=== PATIENT | female | born 1990 | race Caucasian/White ===

== ENCOUNTER 2023-09-19 02:45 | Inpatient (IN) | payer OTHER, SELFPAY ==
[2023-09-19 03:06] VITALS: BMI 25.1
[2023-09-19 03:08] VITALS: BP 129/68
[2023-09-19 03:59] LABS: % Basophils 0.3 % (0-2); % Eosinophils 0.5 % (0-6); % Immature Granulocytes 0.8 % (0-0.5); % Lymphocytes 17.2 % (20.5-51.1); % Monocytes 6.9 % (1.7-9.3); % Neutrophils 74.3 % (42.2-75.2); Absolute Eosinophils 0.1 10^3/uL (0-0.7); Absolute Immature Granulocytes 0.1 10^3/uL (0-0.05); Absolute Lymphocytes 1.6 10^3/uL (1.2-3.4); Absolute Monocytes 0.6 10^3/uL (0.1-0.6); Absolute Neutrophils 6.8 10^3/uL (1.4-6.5); Hematocrit 31.8 % (37.0-47.0); Hemoglobin 10.8 g/dL (12.0-16.0); Mean Corpuscular Hgb 28.3 pg (27.0-31.0); Mean Corpuscular Volume 83.5 fL (81.0-99.0); Mean Platelet Volume 12.3 fL (7.4-10.4); Nucleated Red Blood Cells % 0 %; Platelet Count 126 10^3/uL (130-400); Red Blood Cell Count 3.81 10^6/uL (4.20-5.40); Red Cell Dist. Width 13.6 % (11.5-14.5); White Blood Cell Count 9.2 10^3/uL (4.8-10.8)
[2023-09-19] MEDS: PENICILLIN 110 UNITS IV (04:06)
[2023-09-19] MEDS: LR 1000 IV (04:06)
== END 2023-09-19 08:26 | disposition home or self-care (01) | DRG 833 ==
LOC: LDRP 02:45
PROVIDERS: Obstetrics & Gynecology; ADMITTING PHYSICIAN Obstetrics & Gynecology; FAMILY PHYSICIAN Family Medicine
DX: O47.1 False labor at or after 37 completed weeks of gestation (principal); Z3A.39 39 weeks gestation of pregnancy; Z88.5 Allergy status to narcotic agent; O99.820 Streptococcus B carrier state complicating pregnancy
CPT/HCPCS: 85025; 86850; 86900; 86901; G0378

== ENCOUNTER 2023-09-22 03:55 | Inpatient (IN) | payer OTHER, SELFPAY ==
[2023-09-22 04:08] VITALS: BMI 25.3
[2023-09-22 04:14] VITALS: BP 108/67
[2023-09-22 04:44] LABS: % Basophils 0.4 % (0-2); % Eosinophils 0.9 % (0-6); % Immature Granulocytes 0.5 % (0-0.5); % Monocytes 5.6 % (1.7-9.3); % Neutrophils 74.6 % (42.2-75.2); Absolute Eosinophils 0.1 10^3/uL (0-0.7); Absolute Lymphocytes 1.5 10^3/uL (1.2-3.4); Absolute Monocytes 0.5 10^3/uL (0.1-0.6); Absolute Neutrophils 6.1 10^3/uL (1.4-6.5); Hematocrit 30.5 % (37.0-47.0); Hemoglobin 10.6 g/dL (12.0-16.0); Mean Corp Hgb Conc. 34.8 g/dL (33.0-37.0); Mean Corpuscular Hgb 28.6 pg (27.0-31.0); Mean Corpuscular Volume 82.2 fL (81.0-99.0); Mean Platelet Volume 12.1 fL (7.4-10.4); Nucleated Red Blood Cells % 0 %; Platelet Count 127 10^3/uL (130-400); Red Blood Cell Count 3.71 10^6/uL (4.20-5.40); Red Cell Dist. Width 13.5 % (11.5-14.5); White Blood Cell Count 8.2 10^3/uL (4.8-10.8)
[2023-09-22] MEDS: LR 1000 IV ×2 (04:45→05:45)
[2023-09-22] MEDS: PENICILLIN 110 UNITS IV (05:06)
[2023-09-22] MEDS: FENTANYL/BUPIVACAINE 100 EPIDURAL (05:22)
[2023-09-22] MEDS: SUBLIMAZE 100 MCG EPIDURAL (05:22)
[2023-09-22] MEDS: PENICILLIN 55 UNITS IV (08:46)
[2023-09-22] MEDS: MOTRIN 600 MG PO ×2 (16:34→22:34)
[2023-09-22] MEDS: TYLENOL 650 MG PO (22:34)
[2023-09-23 04:33] LABS: Hematocrit 30.5 % (37.0-47.0); Hemoglobin 10.1 g/dL (12.0-16.0)
[2023-09-23] MEDS: MOTRIN 600 MG PO ×3 (05:28→17:23)
[2023-09-23] MEDS: TYLENOL 650 MG PO ×3 (05:28→17:23)
[2023-09-23] MEDS: PRENATAL PLUS 1 TABLET PO (09:15)
[2023-09-23] MEDS: FEOSOL 325 MG PO ×2 (09:15→20:35)
[2023-09-23] MEDS: SENOKOT-S 1 TABLET PO (09:15)
[2023-09-24] MEDS: MOTRIN 600 MG PO ×2 (00:30→08:26)
[2023-09-24] MEDS: TYLENOL 650 MG PO ×2 (00:30→08:25)
[2023-09-24] MEDS: PRENATAL PLUS 1 TABLET PO (08:25)
[2023-09-24] MEDS: FEOSOL 325 MG PO (08:25)
[2023-09-24 14:39] LABS: Syphilis/T. pallidum Ab Reflex Negative (Negative)
== END 2023-09-24 12:49 | disposition home or self-care (01) | DRG 768 ==
LOC: LDRP 03:55
PROVIDERS: Obstetrics & Gynecology; ADMITTING PHYSICIAN Obstetrics & Gynecology
PROC: 10E0XZZ Delivery of Products of Conception, External Approach (ICD-10-PCS; 2023-09-22)
PROC: 0W8NXZZ Division of Female Perineum, External Approach (ICD-10-PCS; 2023-09-22)
PROC: 0DQP0ZZ Repair Rectum, Open Approach (ICD-10-PCS; 2023-09-22)
DX: O42.02 Full-term premature rupture of membranes, onset of labor within 24 hours of rupture (principal); Z37.0 Single live birth; O70.3 Fourth degree perineal laceration during delivery; Z3A.39 39 weeks gestation of pregnancy; Z88.5 Allergy status to narcotic agent; F90.9 Attention-deficit hyperactivity disorder, unspecified type; L40.9 Psoriasis, unspecified; O99.824 Streptococcus B carrier state complicating childbirth; O76 Abnormality in fetal heart rate and rhythm complicating labor and delivery; O90.81 Anemia of the puerperium; D64.9 Anemia, unspecified
CPT/HCPCS: 88307; 85014; 85018; 85025; 86780; 86850; 86900; 86901

== ENCOUNTER 2023-10-26 12:02 | Outpatient (RCR) | payer OTHER, SELFPAY | END 2023-10-26 23:59 | disposition home or self-care (01) | LOC: RPT 12:02 | PROVIDERS: ATTENDING PHYSICIAN Obstetrics & Gynecology; FAMILY PHYSICIAN Physician Assistant Medical | DX: N39.3 Stress incontinence (female) (male) (principal); R39.15 Urgency of urination; R15.2 Fecal urgency; M62.89 Other specified disorders of muscle; Z73.6 Limitation of activities due to disability; R10.2 Pelvic and perineal pain | CPT/HCPCS: 97110; 97112; 97162; 97530 ==

== ENCOUNTER 2023-12-08 13:03 | Outpatient (RCR) | payer OTHER, SELFPAY | END 2023-12-08 23:59 | disposition home or self-care (01) | LOC: RPT 13:03 | PROVIDERS: ATTENDING PHYSICIAN Obstetrics & Gynecology; FAMILY PHYSICIAN Physician Assistant Medical | DX: N39.3 Stress incontinence (female) (male) (principal); R39.15 Urgency of urination; R15.2 Fecal urgency; M62.89 Other specified disorders of muscle; Z73.6 Limitation of activities due to disability | CPT/HCPCS: 97014; 97110; 97112; 97140; 97530 ==

== ENCOUNTER 2024-01-06 12:10 | Outpatient (RCR) | payer OTHER, SELFPAY | END 2024-01-06 23:59 | disposition home or self-care (01) | LOC: RPT 12:10 | PROVIDERS: ATTENDING PHYSICIAN Obstetrics & Gynecology; FAMILY PHYSICIAN Physician Assistant Medical | DX: N39.3 Stress incontinence (female) (male) (principal); R39.15 Urgency of urination; R15.2 Fecal urgency; M62.89 Other specified disorders of muscle; Z73.6 Limitation of activities due to disability; R10.2 Pelvic and perineal pain | CPT/HCPCS: 97014; 97110; 97112; 97140; 97530 ==

== ENCOUNTER 2024-01-20 12:13 | Outpatient (RCR) | payer OTHER, SELFPAY | END 2024-01-20 23:59 | disposition home or self-care (01) | LOC: RPT 12:13 | PROVIDERS: ATTENDING PHYSICIAN Obstetrics & Gynecology; FAMILY PHYSICIAN Physician Assistant Medical | DX: N39.3 Stress incontinence (female) (male) (principal); R39.15 Urgency of urination; R15.2 Fecal urgency; M62.89 Other specified disorders of muscle; Z73.6 Limitation of activities due to disability; R10.2 Pelvic and perineal pain | CPT/HCPCS: 97110; 97140; 97530 ==

== ENCOUNTER 2024-02-17 14:15 | Outpatient (RCR) | payer OTHER, SELFPAY | END 2024-02-17 23:59 | disposition home or self-care (01) | LOC: RPT 14:15 | PROVIDERS: ATTENDING PHYSICIAN Obstetrics & Gynecology; FAMILY PHYSICIAN Physician Assistant Medical | DX: N39.3 Stress incontinence (female) (male) (principal); R39.15 Urgency of urination; R15.2 Fecal urgency; M62.89 Other specified disorders of muscle; Z73.6 Limitation of activities due to disability; R10.2 Pelvic and perineal pain | CPT/HCPCS: 97110; 97112 ==

== ENCOUNTER → 2024-03-07 13:29 | Day surgery (SDC) | payer OTHER, SELFPAY ==
[2024-03-07 13:35] VITALS: BMI 19.9
[2024-03-07 13:40] VITALS: BP 137/89
[2024-03-07 13:49] VITALS: BMI 19.9
[2024-03-07 16:03] VITALS: BP 109/82
[2024-03-07 16:15] VITALS: BP 122/81
[2024-03-07 16:30] VITALS: BP 123/80
== END ==
LOC: SDS 13:29
PROVIDERS: ATTENDING PHYSICIAN Surgery
DX: R15.2 Fecal urgency (principal)
CPT/HCPCS: 45378

== ENCOUNTER 2024-03-28 09:08 | Outpatient (RCR) | payer OTHER, SELFPAY | END 2024-03-28 23:59 | disposition home or self-care (01) | LOC: RPT 09:08 | PROVIDERS: ATTENDING PHYSICIAN Obstetrics & Gynecology; FAMILY PHYSICIAN Physician Assistant Medical | DX: N39.3 Stress incontinence (female) (male) (principal); R39.15 Urgency of urination; R15.2 Fecal urgency; M62.89 Other specified disorders of muscle; Z73.6 Limitation of activities due to disability; R10.2 Pelvic and perineal pain | CPT/HCPCS: 97140; 97530 ==

== ENCOUNTER 2024-04-19 18:13 | Outpatient (RCR) | payer OTHER, SELFPAY | END 2024-04-19 23:59 | disposition home or self-care (01) | LOC: RPT 18:13 | PROVIDERS: ATTENDING PHYSICIAN Obstetrics & Gynecology; FAMILY PHYSICIAN Physician Assistant Medical | DX: N39.3 Stress incontinence (female) (male) (principal); R39.15 Urgency of urination; R15.2 Fecal urgency; M62.89 Other specified disorders of muscle; Z73.6 Limitation of activities due to disability; R10.2 Pelvic and perineal pain | CPT/HCPCS: 97140; 97530 ==

== ENCOUNTER 2024-05-16 11:19 | Outpatient (RCR) | payer OTHER, SELFPAY | END 2024-05-16 23:59 | disposition home or self-care (01) | LOC: RPT 11:19 | PROVIDERS: ATTENDING PHYSICIAN Obstetrics & Gynecology; FAMILY PHYSICIAN Physician Assistant Medical | DX: N39.3 Stress incontinence (female) (male) (principal); R39.15 Urgency of urination; R15.2 Fecal urgency; M62.89 Other specified disorders of muscle; Z73.6 Limitation of activities due to disability; R10.2 Pelvic and perineal pain | CPT/HCPCS: 97140; 97530 ==

== ENCOUNTER 2024-07-03 05:57 | Day surgery (SDC) | payer OTHER, SELFPAY ==
[2024-06-21 11:38] LABS: Hemoglobin 13.9 g/dL (12.0-16.0); Mean Corp Hgb Conc. 33.9 g/dL (33.0-37.0); Mean Corpuscular Hgb 29.5 pg (27.0-31.0); Mean Platelet Volume 12.2 fL (7.4-10.4); Platelet Count 217 10^3/uL (130-400); Red Blood Cell Count 4.71 10^6/uL (4.20-5.40); Red Cell Dist. Width 12.4 % (11.5-14.5)
[2024-06-21 11:41] LABS: Blood Urea Nitrogen 18 mg/dl (7-17); Calcium 9.6 mg/dl (8.4-10.2); Carbon Dioxide 25 mmol/L (22-30); Chloride 104 mmol/L (98-107); Glucose 96 mg/dl (70-99); Potassium 4.1 mmol/L (3.5-5.1); Sodium 138 mmol/L (135-145); eGFR > 60.00
[2024-06-21 14:12] VITALS: BMI 18.0
[2024-07-03] VITALS (15 sets, daily range): BP systolic 90–118; BP diastolic 49–70; BMI 18.0
[2024-07-03] MEDS: NORMOSOL-R/PLASMALYTE-A 1000 IV ×3 (06:31→17:55)
[2024-07-03] MEDS: Pyridium 200 MG PO (06:31)
[2024-07-03] MEDS: ZOFRAN 4 MG IV (09:26)
[2024-07-03] MEDS: DILAUDID 0.5 MG IV ×2 (09:51→20:35)
[2024-07-03 10:07] LABS: Hematocrit 35.6 % (37.0-47.0); Hemoglobin 12.2 g/dL (12.0-16.0)
[2024-07-03] MEDS: DILAUDID 0.25 MG IV (10:52)
[2024-07-03] MEDS: ROXICODONE 5 MG PO ×2 (13:35→17:54)
--- NOTE | 2024-07-03 15:35 | PTCARENOTE ---
Pt received from PACU, pt assessed by myself and Lyndsay WILKES. Surgical site intact with no bleeding noted. Pt complains of severe pain, ice pack applied, given cushion to sit on and prn oxycodone was given. Pt currently in much better spirits,
tolerating a regular diet with no further nausea. [place] in place putting out bright orange urine (pyridium). at bedside, all questions answered. Call khanna within reach.
[2024-07-03] MEDS: COLACE 100 MG PO (20:15)
[2024-07-04 00:09] VITALS: BP 109/57
[2024-07-04] MEDS: NORMOSOL-R/PLASMALYTE-A 1000 IV (00:38)
[2024-07-04 03:11] VITALS: BP 98/57
[2024-07-04] MEDS: ROXICODONE 5 MG PO ×3 (03:18→11:34)
[2024-07-04 05:31] VITALS: BP 102/58
--- NOTE | 2024-07-04 07:06 | W.PN.GYN ---
Today's Communication / Plan
-
1. voiding trial
2. blood work pending
3. discharge home
Physician Note
-
Assessment and plan:
33 yo woman POD 1 s/p sphincteroplasty, posterior colporrhaphy with perineoplasty is doing well and meeting postoperative milestones. Plan for d/c home today after voiding trial.
1. Postoperative Care
-hep lock iv
-regular diet
-DVT ppx: ambulation, scds
-UOP: adequate
-pain controlled with PO oxycodone, tylenol and toradol
-plan to transition toradol to ibu today
-start ppx abx: cipro and flagyl today x5 days
-bowel regimen: senna/colace
-cbc: pending
-bmp: pending
2. Dispo
-d/c home day
Subjective:
patient has rectal pressure and discomfort controlled with ice packs and oral pain medications, denies vaginal bleeding or discharge. patient is tolerating regular diet. ambulating to counts include [facility] beds at the [facility].
denies fever/chills, nausea/vomiting, sob, chest pain
Objective:
Intake and Output
07/02/24 07/03/24 07/04/24 07/05/24
06:59 06:59 06:59 06:59
Intake Total 4090 / 4090
Output Total 2975 / 2975
Balance 1115 / 1115
Intake:
Oral fluids 1440 / 1440
IV fluids (Total) 2650 / 2650
normosol 150 / 150
Output:
Urine, [place] 2975 / 2975
Vital Signs
Temp Pulse Resp BP Pulse Ox
98.6 F 70 16 102/58 99
07/04/24 03:11 07/04/24 05:31 07/04/24 03:11 07/04/24 05:31 07/04/24 03:11
Exam:
abdomen: soft, nontender
: minimal spotting on pad, incision intact, no discharge, no edema, no evidence of hematoma
[2024-07-04 07:13] VITALS: BP 113/71
[2024-07-04 07:21] LABS: Hematocrit 29.9 % (37.0-47.0); Hemoglobin 10.2 g/dL (12.0-16.0); Mean Corp Hgb Conc. 34.1 g/dL (33.0-37.0); Mean Corpuscular Hgb 29.7 pg (27.0-31.0); Mean Corpuscular Volume 87.2 fL (81.0-99.0); Mean Platelet Volume 11.9 fL (7.4-10.4); Platelet Count 170 10^3/uL (130-400); Red Blood Cell Count 3.43 10^6/uL (4.20-5.40)
[2024-07-04] MEDS: FLAGYL 500 MG PO (07:29)
[2024-07-04] MEDS: CIPRO 500 MG PO (07:29)
[2024-07-04] MEDS: REGLAN 10 MG PO (07:29)
[2024-07-04] MEDS: COLACE 100 MG PO (07:30)
[2024-07-04 07:53] LABS: Blood Urea Nitrogen 8 mg/dl (7-17); Carbon Dioxide 26 mmol/L (22-30); Chloride 106 mmol/L (98-107); Estimated Creatinine Clearance 91 ml/min; Potassium 3.9 mmol/L (3.5-5.1); Sodium 139 mmol/L (135-145)
[2024-07-04 11:03] VITALS: BP 109/65
--- NOTE | 2024-07-04 13:56 | CM ---
Patient chart reviewed
No needs
Discharge to home today prior to CM assessment
PLAN: Discharge home, no needs
== END 2024-07-04 12:38 | disposition home or self-care (01) ==
LOC: SDS 05:57
PROVIDERS: ATTENDING PHYSICIAN Obstetrics & Gynecology; FAMILY PHYSICIAN Physician Assistant Medical
PROC: 0JQC0ZZ Repair Pelvic Region Subcutaneous Tissue and Fascia, Open Approach (ICD-10-PCS; 2024-07-03)
PROC: 0DQR0ZZ Repair Anal Sphincter, Open Approach (ICD-10-PCS; 2024-07-03)
DX: N81.6 Rectocele (principal); R15.2 Fecal urgency; R15.9 Full incontinence of feces
CPT/HCPCS: 57250; 46750; 36415; 80048; 80051; 82565; 84520; 85014; 85018; 85027; 93005; C1713

== ENCOUNTER 2024-10-02 12:38 | Outpatient (RCR) | payer OTHER, SELFPAY | END 2024-10-02 23:59 | disposition home or self-care (01) | LOC: RPT 12:38 | PROVIDERS: ATTENDING PHYSICIAN Obstetrics & Gynecology; FAMILY PHYSICIAN Physician Assistant Medical | DX: R10.2 Pelvic and perineal pain (principal); N94.11 Superficial (introital) dyspareunia; M62.89 Other specified disorders of muscle; Z73.6 Limitation of activities due to disability | CPT/HCPCS: 97140; 97163; 97530 ==

== ENCOUNTER 2024-11-14 09:19 | Outpatient (RCR) | payer OTHER, SELFPAY | END 2024-11-14 23:59 | disposition home or self-care (01) | LOC: RPT 09:19 | PROVIDERS: ATTENDING PHYSICIAN Obstetrics & Gynecology; FAMILY PHYSICIAN Physician Assistant Medical | DX: R10.2 Pelvic and perineal pain (principal); N94.11 Superficial (introital) dyspareunia; M62.89 Other specified disorders of muscle; Z73.6 Limitation of activities due to disability; N94.9 Unspecified condition associated with female genital organs and menstrual cycle | CPT/HCPCS: 97140; 97530 ==